=== PATIENT | male | born 1945 | race Caucasian/White ===

== ENCOUNTER → 2019-05-15 | Outpatient (CLI) | payer MEDICARE | LOC: M SMT 14:37 | PROVIDERS: ATTEND Nurse Practitioner Family | DX: R97.20 Elevated prostate specific antigen [PSA] (principal) ==

== ENCOUNTER → 2019-05-15 | Outpatient (REF) | payer MEDICARE ==
[2019-05-15 19:05] LABS: APPEARANCE, URINE CLEAR (CLEAR); BACTERIA, URINE AUTO NEGATIVE (NEGATIVE); BILIRUBIN, URINE AUTO NEGATIVE (NEGATIVE); BLOOD, URINE BLOOD NEGATIVE (NEGATIVE); COLOR, URINE YELLOW (YELLOW); GLUCOSE, URINE (UA) AUTO NEGATIVE (NEGATIVE); KETONE, URINE AUTO NEGATIVE (NEGATIVE); LEUKOCYTE ESTERASE, URINE AUTO NEGATIVE (NEGATIVE); MUCUS, URINE SMALL (NEGATIVE); NITRITE, URINE AUTO NEGATIVE (NEGATIVE); PROTEIN, URINE AUTO NEGATIVE (NEGATIVE); RBC, URINE AUTO 0 /HPF (0-3); SPECIFIC GRAVITY URINE AUTO 1.012 (1.002-1.035); SQUAMOUS EPITHELIAL CELL UR AU 0 /HPF (0-6); UROBILINOGEN, URINE AUTO 0.2 mg/dL (0.0-2.0); WBC, URINE AUTO 0 /HPF (0-3)
== END ==
LOC: M SMT 17:26
PROVIDERS: ATTEND Nurse Practitioner Family
DX: R31.9 Hematuria, unspecified (principal); R97.20 Elevated prostate specific antigen [PSA]

== ENCOUNTER → 2019-05-30 | Outpatient (CLI) | payer MEDICARE ==
[~2019-05-30] MED LIST: ASPI81TA85 PO; ATOR1TAB21 PO; AVAP300T23 PO; BUPR50TA PO; CIPR-249 PO; COLA100C5 PO; IRBE300T12 PO; LIPI20TA PO; OMEP20CA4 PO; OXYC1TAB23 PO; PRIL20TA2 PO; SM 88TAB PO
--- NOTE | 2019-05-30 14:25 | REP ---
TRANSRECTAL ULTRASOUND PROSTATE WITH ULTRASOUND GUIDANCE FOR PROSTATE BIOPSY: Real-time sonographic evaluation of prostate performed utilizing transrectal probe. Size of the gland is 4.2 x 2.6 x 4.3 cm for a total volume of 25 mL. Echotexture is heterogeneous. There are tiny cystic areas and calcifications noted. Several focal hypoechoic areas are seen. There is one in the left mid aspect, 7 x 5 mm, one in the right apex 7 x 6 mm, and one in the left apex 7 x 4 mm. Seminal vesicles appear symmetrical. Ultrasound guidance was provide for Dr. Gunter, who performed ultrasound-guided biopsy of the prostate. Electronically Signed by Boni Wild MD 05/31/2019 09:24 A
== END ==
LOC: M SMT PRO 10:17
PROVIDERS: ATTEND Urology
DX: C61 Malignant neoplasm of prostate (principal)
CPT/HCPCS: 55700; 76872; 76942; G0416

== ENCOUNTER → 2019-06-07 | Outpatient (REF) | payer MEDICARE, OTHER ==
[2019-06-07 17:48] LABS: APPEARANCE, URINE CLOUDY (CLEAR); BACTERIA, URINE AUTO 1+ (NEGATIVE); BILIRUBIN, URINE AUTO NEGATIVE (NEGATIVE); BLOOD, URINE BLOOD 2+ (NEGATIVE); COLOR, URINE YELLOW (YELLOW); GLUCOSE, URINE (UA) AUTO NEGATIVE (NEGATIVE); KETONE, URINE AUTO TRACE mg/dL (NEGATIVE); LEUKOCYTE ESTERASE, URINE AUTO 3+ (NEGATIVE); MUCUS, URINE SMALL (NEGATIVE); NITRITE, URINE AUTO NEGATIVE (NEGATIVE); PROTEIN, URINE AUTO 1+ mg/dL (NEGATIVE); RBC, URINE AUTO 8 /HPF (0-3); SPECIFIC GRAVITY URINE AUTO 1.016 (1.002-1.035); SQUAMOUS EPITHELIAL CELL UR AU 0 /HPF (0-6); UROBILINOGEN, URINE AUTO 0.2 mg/dL (0.0-2.0); WBC, URINE AUTO TNTC /HPF (0-3)
== END ==
LOC: M LABSMT 13:28
PROVIDERS: ATTEND Urology
DX: R30.0 Dysuria (principal)

== ENCOUNTER 2019-06-21 11:40 | Inpatient (IN) | payer MEDICARE, OTHER ==
[~2019-06-21] VITALS: Ht 177.8 cm; Wt 100.7 kg
[~2019-06-21 11:40] MED LIST changes: -AVAP300T23 PO; -CIPR-249 PO; -COLA100C5 PO; +HEPARIN SOD (PORCINE) 5000 UNITS/ML VIAL SQ ONE; +KETOROLAC 60 MG/2 ML VIAL (J1885) As Ordered ONE; +LIDOCAINE 2% INJ 100 MG/5 ML SDV (FOR ANES.) As Ordered ONE; -LIPI20TA PO; +LR 1,000 ML IV ONE; +MIDAZOLAM INJ 2 MG/2 ML VIAL (J2250) As Ordered ONE; +OMEP1CAP73 PO; -OMEP20CA4 PO; +ONDANSETRON 4MG/2ML VIAL (J2405) As Ordered ONE; -OXYC1TAB23 PO; -PRIL20TA2 PO; +ROCURONIUM BROMIDE 50 MG/5 ML VIAL As Ordered ONE; -SM 88TAB PO; +SUGAMMADEX SODIUM 500 MG/5 ML VIAL (BRIDION) As Ordered ONE; +ceFAZolin SOD 2 GM in IV 1 EA IV ONE; +dexameTHASONE 4 MG/ML 1ML VIAL (J1100) As Ordered ONE; +fentaNYL 250 MCG/5 ML INJECTION (J3010) As Ordered ONE; +hydroCHLOROthiazide 12.5 MG CAPSULE PO SCH; +propofoL 200 MG/20 ML VIAL As Ordered ONE
[2019-06-21] MEDS ORDERED: ACETAMINOPHEN TAB 650MG DOSE (2X325MG) PO PRN (12:30)
[2019-06-21] MEDS ORDERED: ONDANSETRON 4MG/2ML VIAL (J2405) IV PRN ×2 (12:30→17:15)
[2019-06-21] MEDS ORDERED: PERCOCET 5MG/325MG TAB PO PRN ×2 (12:30→17:15)
[2019-06-21] MEDS ORDERED: MORPHINE 4 MG/ML 1ML VIAL/SYRINGE (J2270) IV PRN (12:30)
[2019-06-21] MEDS ORDERED: VECURONIUM BROMIDE 10 MG VIAL As Ordered ONE (13:03)
[2019-06-21] MEDS ORDERED: ROCURONIUM BROMIDE 50 MG/5 ML VIAL As Ordered ONE ×2 (13:03→15:21)
[2019-06-21] MEDS ORDERED: ePHEDrine SULFATE 25 MG/5 ML(5MG/ML) SYRINGE As Ordered ONE (13:05)
[2019-06-21] MEDS ORDERED: PHENYLephrine HCL 500 MCG/5 ML (100MCG/ML) SYRINGE (J2370) As Ordered ONE (13:05)
[2019-06-21] MEDS ORDERED: HYDROmorphone HCL 2 MG/ML 1ML VIAL (J1170) As Ordered ONE (13:56)
[2019-06-21] MEDS ORDERED: ACETAMINOPHEN 1000MG 100ML IV BTL (OFIRMEV) (J0131 PER 10MG) As Ordered ONE (14:16)
[2019-06-21] MEDS ORDERED: DESFLURANE 240 ML INHALANT As Ordered ONE (15:02)
[2019-06-21] MEDS ORDERED: BUPIVACAINE HCL 0.25% 10 ML VIAL XX ONE (16:30)
[2019-06-21] MEDS ORDERED: LIDOCAINE 1% SDV INJ 30 ML VIAL XX ONE (16:30)
--- NOTE | 2019-06-21 16:52 | ROOPDOC ---
[facility] Report Of Operation Report of Operation DATE OF PROCEDURE: 06/21/19 PREPROCEDURE DIAGNOSES: Prostate Cancer. POSTPROCEDURE DIAGNOSES: Prostate Cancer. PROCEDURE: Robotic-assisted Laparoscopic Radical Prostatectomy. SURGEON: Matias Viera MD WELL TESTING OPERATOR: Liliam Lopez NP ANESTHESIA: General. OPERATIVE INDICATIONS: This is a 74 year old male with low risk clinical T1c Jim 3+3 prostate cancer. After a discussion of the options for treatment, he elected to undergo the above procedure. DESCRIPTION OF PROCEDURE: The patient was brought to the operating room and general anesthesia was induced. Prophylactic antibiotics were infused. He was then placed in the dorsal lithotomy position and prepped and draped in the usual sterile fashion. At this point, a Bledsoe catheter was inserted into the bladder and the balloon was filled with 10 mL of sterile water. We then made a midline incision just above the umbilicus for a 12 mm port. A Veress needle was utilized to achieve pneumoperitoneum. Next, an 8 mm port was inserted into the incision and subsequently a camera was inserted. There were no injuries from the Veress needle or initial trocar placement. At this point, we placed the remaining ports, including a 12 mm grants assistant port and then three robotic ports in the usual configuration in line with the umbilicus. Once all the ports were placed, the robot was docked. Lysis of adhesions between the sigmoid colon and abdominal wall was then performed. The bladder was then released from the anterior abdominal wall using electrocautery. Once the bladder was dropped, the fat overlying the prostate was cleared using electrocautery. The superficial dorsal vein was controlled with electrocautery. The endopelvic fascia was opened on both sides and the dorsal venous complex was cleared. Next, a #0 Vicryl [id number] stitch was placed around the do rsal venous complex. Once that was done, the bladder was opened and dissected away from the prostate. At this point I dissected posterior and the vasa deferentia were identified. They were ligated and transected. The seminal vesicles were then dissected out. Bilateral pedicles were ligated and transected using a Harmonic scalpel. After taking care of the pedicles and mobilizing the rectum off the prostate below, the dorsal venous complex was transected with electrocautery. The urethra was then opened and the catheter was withdrawn and the posterior urethra was transected, thus freeing the prostate. At this point, we checked for hemostasis and it appeared very good. Once hemostasis was confirmed, I then moved on to perform the vesicourethral anastomosis. The vesicourethral anastomosis was performed in running fashion using a Quill stitch. Once this was done, the final #20-Djiboutian Bledsoe catheter was placed. The balloon was filled with 15 mL of sterile water. Upon completion of the vesicourethral anastomosis, it was tested by filling the bladder with sterile water. There was no leakage, indicating a watertight anastomosis. At th is point, the prostate was placed in an Endo Catch bag for future retrieval. The robot was then undocked. A Roslyn fascial closure device was utilized to place a #0 Vicryl suture between the fascia of the 12 mm grants assistant port. At this point, a Benito- Campuzano drain was brought in through the left robotic port skin site and the drain was positioned anterior to the bladder. The drain was secured to the skin with #2-0 Ethilon suture. Next, all the remaining ports were removed and there did not appear to be any bleeding from any of the port sites. The prostate was then extracted from the camera port site after the skin was extended. The fascia in this incision was then closed with a running #0 Vicryl stitch. The previously placed #0 Vicryl free ties through the grants assistant port were then tied down and all incisions were irrigated. Last, all of the incisions were closed with run faraz subcuticular #4-0 Monocryl sutures. Local anesthesia was applied. Dermabond was then applied to the incisions. This marked the conclusion of the procedure. The patient was then taken out of the dorsal lithotomy position, awakened from anesthesia and transported to the recovery room in stable condition. ESTIMATED BLOOD LOSS: 75 mL. COMPLICATIONS: None. SPECIMENS: Prostate. PLAN: The patient will be admitted to the hospital postoperatively, and he will likely be discharged home within the next 1-2 days. MATIAS VIERA MD Jun 21, 2019 16:52
[2019-06-21 17:07] LABS: HEMATOCRIT 41.1 % (42.0-52.0); HEMOGLOBIN 13.5 g/dl (13.5-17.5); MEAN CORPUSCULAR HGB CONC 32.8 g/dl (32.0-36.5); MEAN CORPUSCULAR VOLUME 91.3 fl (80.0-96.0); PLATELET COUNT, AUTOMATED 376 10^3/uL (150-450); WHITE BLOOD COUNT 16.6 10^3/uL (4.0-10.0)
[2019-06-21] MEDS ORDERED: MEPERIDINE INJ 25 MG/ML VIAL (J2175) IV PRN (17:15)
[2019-06-21] MEDS ORDERED: METOCLOPRAMIDE INJ 10MG/2ML VIAL (J2765) IV PRN (17:15)
[2019-06-21] MEDS ORDERED: fentaNYL 100 MCG/2 ML INJECTION (J3010) IV PRN (17:15)
[2019-06-21] MEDS ORDERED: LR 1,000 ML IV SCH (17:15)
[2019-06-21 17:25] LABS: CALCIUM LEVEL 8.5 MG/DL (8.8-10.2); CREATININE FOR GFR 1.59 MG/DL (0.70-1.30); GLOMERULAR FILTRATION RATE 45.5 (>42); POTASSIUM SERUM 4.1 MEQ/L (3.5-5.1)
[2019-06-21 17:40] VITALS: BP 143/87
[2019-06-21] MEDS: IRBESARTAN 150 MG TAB PO SCH (17:58)
[2019-06-21] MEDS: DOCUSATE SODIUM 100 MG CAP PO SCH ×2 (17:59→20:39)
[2019-06-21] MEDS: NS 1,000 ML IV SCH ×2 (18:39→19:47)
[2019-06-21] MEDS: PERCOCET 5MG/325MG TAB PO PRN ×2 (18:56→23:48)
[2019-06-21] MEDS: ceFAZolin SOD 1 GM in D5W MINI-BAG PLUS 50 ML IV SCH (19:47)
[2019-06-21] MEDS: OMEPRAZOLE 20 MG CAP PO SCH (20:39)
[2019-06-21] MEDS: ATORVASTATIN 20 MG TAB PO SCH (20:39)
[2019-06-21 21:06] VITALS: BP 139/83
[2019-06-21] MEDS: HEPARIN SOD (PORCINE) 5000 UNITS/ML VIAL SC SCH (21:28)
[2019-06-21 22:06] VITALS: BP 138/83
[2019-06-22 02:40] VITALS: BP 112/70
[2019-06-22] MEDS: ceFAZolin SOD 1 GM in D5W MINI-BAG PLUS 50 ML IV SCH (03:36)
[2019-06-22] MEDS: NS 1,000 ML IV SCH (03:36)
[2019-06-22] MEDS: HEPARIN SOD (PORCINE) 5000 UNITS/ML VIAL SC SCH ×3 (05:29→21:28)
[2019-06-22 06:19] VITALS: BP 116/70
--- NOTE | 2019-06-22 07:50 | IPNPDOC ---
Subjective Review oF Systems Chief Complaint The patient is a 74-year-old male admitted with a reason for visit of Prostate Cancer. Events since Last Encounter No acute events o/n. Good pain control. No n/v. Ambulated a little last night w/o difficulty. No f/c/ns. Objective Physical Examination General Exam: Alert, Cooperative, No Acute Distress ABDOMEN EXAM: Soft, Tenderness (minimal), Other (incisions clean/dry/intact; TANVI w/ serosang output) Skin Exam: Nl turgor and temperature Other physical findings catheter draining pink urine Vital Signs/I&O Vital Signs Date Time Temp Pulse Resp B/P (MAP) Pulse Ox O2 Delivery O2 Flow Rate FiO2 06/22/19 06:19 97.8 88 18 116/70 (85) 97 06/21/19 20:30 2.0 I&O- Last 24 Hours up to 6 AM 06/22/19 06:00 Intake Total 4650 ml Output Total 915 ml Balance 3735 ml Laboratory Data Labs 24H Laboratory Tests 2 06/21/19 16:51: Nucleated Red Blood Cells % (auto) 0.0, Anion Gap 7L, Glomerular Filtration Rate 45.5, Blood Urea Nitrogen 22H, Creatinine 1.59H, Sodium Level 138, Potassium Level 4.1, Chloride Level 104, Carbon Dioxide Level 27, Calcium Level 8.5L CBC/BMP Laboratory Tests 06/21/19 16:51 Red Blood Count 4.50, Mean Corpuscular Volume 91.3, Mean Corpuscular Hemoglobin 30.0, Mean Corpuscular Hemoglobin Concent 32.8, Red Cell Distribution Width 13.1, Calcium Level 8.5 L Assessment/Plan Date Seen The patient was seen on 06/22/19. Patient Summary This is a 74 y/o M POD1 s/p RALP. Labs are still pending. UOP has been low as he did not get his diuretic yesterday. Pain is well controlled. Plan/VTE VTE Prophylaxis Ordered?: Yes VTE Exclusion Mechanical Proph: N/A:VTE Prophy Ordered VTE Exclusion Pharmacological: N/A:VTE Prophy Ordered Plan/Urinary Catheter Urinary Catheter: Other Catheter: (catheter will need to stay in for 7-10 days for healing of the vesicourethral anastomosis) Plan - percocet prn pain - d/c IVF - strict I/Os - SCDs when in bed - SQH - incentive spirometry - will hold HCTZ and give IV lasix this morning - continue home meds - ambulate - CLD -> ADAT - likely discharge home later today w/ catheter MATIAS VIERA MD Jun 22, 2019 07:50
[2019-06-22 07:59] LABS: CALCIUM LEVEL 8.6 MG/DL (8.8-10.2); CREATININE FOR GFR 1.79 MG/DL (0.70-1.30); GLOMERULAR FILTRATION RATE 39.7 (>42); POTASSIUM SERUM 4.5 MEQ/L (3.5-5.1)
[2019-06-22] MEDS ORDERED: FUROSEMIDE 20 MG/2 ML VIAL (J1940) IV ONE (08:00)
[2019-06-22 08:11] LABS: HEMATOCRIT 37.8 % (42.0-52.0); HEMOGLOBIN 12.6 g/dl (13.5-17.5); MEAN CORPUSCULAR HEMOGLOBIN 31.3 pg (27.0-33.0); MEAN CORPUSCULAR HGB CONC 33.3 g/dl (32.0-36.5); PLATELET COUNT, AUTOMATED 389 10^3/uL (150-450); RED BLOOD COUNT 4.02 10^6/uL (4.30-6.10); WHITE BLOOD COUNT 15.3 10^3/uL (4.0-10.0)
[2019-06-22] MEDS: DOCUSATE SODIUM 100 MG CAP PO SCH ×2 (08:18→21:28)
[2019-06-22] MEDS: IRBESARTAN 150 MG TAB PO SCH (08:21)
[2019-06-22 14:00] VITALS: BP 126/68
[2019-06-22] MEDS: PERCOCET 5MG/325MG TAB PO PRN ×2 (14:45→21:29)
[2019-06-22] MEDS: hydroCHLOROthiazide 12.5 MG CAPSULE PO SCH (17:36)
[2019-06-22 21:17] VITALS: BP 130/69
[2019-06-22] MEDS: ATORVASTATIN 20 MG TAB PO SCH (21:28)
[2019-06-22] MEDS: OMEPRAZOLE 20 MG CAP PO SCH (21:28)
[2019-06-23] MEDS: HEPARIN SOD (PORCINE) 5000 UNITS/ML VIAL SC SCH (05:37)
[2019-06-23 06:32] VITALS: BP 138/73
[2019-06-23 06:53] LABS: HEMATOCRIT 36.6 % (42.0-52.0); HEMOGLOBIN 11.8 g/dl (13.5-17.5); MEAN CORPUSCULAR HGB CONC 32.2 g/dl (32.0-36.5); MEAN CORPUSCULAR VOLUME 96.1 fl (80.0-96.0); PLATELET COUNT, AUTOMATED 320 10^3/uL (150-450); RED BLOOD COUNT 3.81 10^6/uL (4.30-6.10); WHITE BLOOD COUNT 10.2 10^3/uL (4.0-10.0)
[2019-06-23 07:22] LABS: CALCIUM LEVEL 8.6 MG/DL (8.8-10.2); CREATININE FOR GFR 1.34 MG/DL (0.70-1.30); GLOMERULAR FILTRATION RATE 55.5 (>42); POTASSIUM SERUM 3.9 MEQ/L (3.5-5.1)
[2019-06-23] MEDS: hydroCHLOROthiazide 12.5 MG CAPSULE PO SCH (09:06)
[2019-06-23] MEDS: DOCUSATE SODIUM 100 MG CAP PO SCH (09:06)
[2019-06-23 09:07] VITALS: BP 138/73
[2019-06-23] MEDS: IRBESARTAN 150 MG TAB PO SCH (09:07)
--- NOTE | 2019-06-23 10:09 | IPNPDOC ---
Subjective Review oF Systems Chief Complaint The patient is a 74-year-old male admitted with a reason for visit of Prostate Cancer. Events since Last Encounter No acute events o/n. Patient noted that he had some leakage around the catheter yesterday but the majority of the urine was still going through the tubing. Good pain control. Having small amounts of flatus but no bm. No n/v. No f/c/ns. Objective Physical Examination General Exam: Alert, Cooperative, No Acute Distress ABDOMEN EXAM: Soft, Tenderness (minimal), Other (incisions clean/dry/intact; TANVI w/ serous output) Skin Exam: Nl turgor and temperature Neuro Exam: Normal Speech Psych Exam: Mental status NL, Mood NL Other physical findings catheter in place, draining clear urine Vital Signs/I&O Vital Signs Date Time Temp Pulse Resp B/P (MAP) Pulse Ox O2 Delivery O2 Flow Rate FiO2 06/23/19 09:07 138/73 06/23/19 06:32 97.6 73 97 06/22/19 21:59 16 06/21/19 20:30 2.0 I&O- Last 24 Hours up to 6 AM 06/23/19 06:00 Intake Total 2310 ml Output Total 3775 ml Balance -1465 ml Laboratory Data Labs 24H Laboratory Tests 2 06/23/19 06:38: Nucleated Red Blood Cells % (auto) 0.0, Anion Gap 5L, Glomerular Filtration Rate 55.5, Blood Urea Nitrogen 20H, Creatinine 1.34H, Sodium Level 137, Potassium Level 3.9, Chloride Level 105, Carbon Dioxide Level 27, Calcium Level 8.6L CBC/BMP Laboratory Tests 06/23/19 06:38 Red Blood Count 3.81 L, Mean Corpuscular Volume 96.1 H, Mean Corpuscular Hemoglobin 31.0, Mean Corpuscular Hemoglobin Concent 32.2, Red Cell Distribution Width 13.5, Calcium Level 8.6 L Assessment/Plan Date Seen The patient was seen on 06/23/19. Patient Summary This is a 74 y/o M POD2 s/p RALP. He is doing well. UOP has been excellent w/ almost no drain output for 24 hrs. Serum Cr is now back at his baseline of 1.3. Plan/VTE VTE Prophylaxis Ordered?: Yes VTE Exclusion Mechanical Proph: N/A:VTE Prophy Ordered VTE Exclusion Pharmacological: N/A:VTE Prophy Ordered Plan/Urinary Catheter Urinary Catheter: Other Catheter: (catheter will need to stay in for 7-10 days for healing of the vesicourethral anastomosis) Plan - d/c TANVI drain - percocet prn pain - ambulate - SCDs when in bed - SQH - incentive spirometry - regular diet - discharge home today w/ catheter MATIAS VIERA MD Jun 23, 2019 10:09
[2019-06-23] MEDS: PERCOCET 5MG/325MG TAB PO PRN (10:22)
[2019-06-23] MEDS ORDERED: AVAP300T23 PO (13:57)
[2019-06-23] MEDS ORDERED: SM 88TAB PO (13:57)
[2019-06-23] MEDS ORDERED: OXYC1TAB23 PO (13:57)
[2019-06-23] MEDS ORDERED: COLA100C5 PO (13:57)
[2019-06-23] MEDS ORDERED: LIPI20TA PO (13:57)
[2019-06-23] MEDS ORDERED: CIPR-249 PO (13:57)
[2019-06-23] MEDS ORDERED: PRIL20TA2 PO (13:57)
[2019-06-23 14:00] VITALS: BP 134/67
--- NOTE | 2019-06-26 17:35 | DSES ---
DATE OF ADMISSION: 06/21/2019 DATE OF DISCHARGE: 06/23/2019 ADMISSION DIAGNOSIS: Prostate cancer. DISCHARGE DIAGNOSIS: Prostate cancer. ADMITTING PHYSICIAN: Macario Gunter MD DISCHARGING PHYSICIAN: Macario Gunter MD PROCEDURE PERFORMED: Robotic-assisted laparoscopic radical prostatectomy. HISTORY OF PRESENT ILLNESS: This is a 74-year-old male who was admitted to the hospital after undergoing the above-listed procedure. HOSPITAL COURSE: The patient's postoperative course was mostly unremarkable. On postoperative day one, he did have a bump in his serum creatinine to 1.7. Also over the night of surgery, he had minimal output from his catheter and a large amount out from his Benito-Campuzano drain. This raised concern for a possible urine leak. We therefore did not discharge him home on postoperative day one. 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 By postoperative day two, he had had large amounts of urine out of his catheter and a very small amount of output from the Benito-Campuzano drain indicating that he actually did not have a urine leak. His serum creatinine also came down to his baseline of 1.3. The rest of his laboratories were within normal limits. By postoperative day two, he was ambulating well and was tolerating a regular diet. He had very good pain control with oral pain medications. Since his Benito- Campuzano drain was putting out very small amounts at this point, it was removed. He was deemed ready for discharge home on postoperative day two and was discharged home with his catheter in place. He will followup in the clinic in approximately one week for catheter removal and to discuss the pathology results. RODRIGUEZ
== END 2019-06-23 14:55 | disposition home or self-care (01) | DRG 708 ==
LOC: M OR 11:40 → M MS5PR 17:35
PROVIDERS: ADMIT Urology; ATTEND Urology
PROC: 8E0W4CZ Robotic Assisted Procedure of Trunk Region, Percutaneous Endoscopic Approach (ICD-10-PCS; 2019-06-21)
PROC: 0VT04ZZ Resection of Prostate, Percutaneous Endoscopic Approach (ICD-10-PCS; principal; 2019-06-21 13:30)
DX: C61 Malignant neoplasm of prostate (principal)

== ENCOUNTER → 2019-07-31 | Outpatient (CLI) | payer MEDICARE ==
[~2019-07-31] MED LIST changes: +AVAP300T23 PO; +CIPR-249 PO; +COLA100C5 PO; -HEPARIN SOD (PORCINE) 5000 UNITS/ML VIAL SQ ONE; -KETOROLAC 60 MG/2 ML VIAL (J1885) As Ordered ONE; -LIDOCAINE 2% INJ 100 MG/5 ML SDV (FOR ANES.) As Ordered ONE; +LIPI20TA PO; -LR 1,000 ML IV ONE; -MIDAZOLAM INJ 2 MG/2 ML VIAL (J2250) As Ordered ONE; -OMEP1CAP73 PO; +OMEP20CA4 PO; -ONDANSETRON 4MG/2ML VIAL (J2405) As Ordered ONE; +OXYC1TAB23 PO; +PRIL20TA2 PO; -ROCURONIUM BROMIDE 50 MG/5 ML VIAL As Ordered ONE; +SM 88TAB PO; -SUGAMMADEX SODIUM 500 MG/5 ML VIAL (BRIDION) As Ordered ONE; -ceFAZolin SOD 2 GM in IV 1 EA IV ONE; -dexameTHASONE 4 MG/ML 1ML VIAL (J1100) As Ordered ONE; -fentaNYL 250 MCG/5 ML INJECTION (J3010) As Ordered ONE; -hydroCHLOROthiazide 12.5 MG CAPSULE PO SCH; -propofoL 200 MG/20 ML VIAL As Ordered ONE
== END ==
LOC: M SMT 11:08
PROVIDERS: ATTEND Urology
DX: C61 Malignant neoplasm of prostate (principal)

== ENCOUNTER → 2020-05-19 | Outpatient (CLI) | payer MEDICARE, OTHER ==
[~2020-05-19] MED LIST changes: -ASPI81TA85 PO; +ASPI81TA86 PO; +BUPR-69 PO; -BUPR50TA PO; +OMEP1CAP73 PO; -OMEP20CA4 PO
== END ==
LOC: M LABSMTC 09:20
PROVIDERS: ATTEND Surgery
DX: Z01.818 Encounter for other preprocedural examination (principal); Z11.59 Encounter for screening for other viral diseases; Z20.828 Contact with and (suspected) exposure to other viral communicable diseases
CPT/HCPCS: C9803; U0003

== ENCOUNTER 2020-05-23 09:49 | Day surgery (SDC) | payer MEDICARE, OTHER ==
[~2020-05-23] VITALS: Ht 175.3 cm; Wt 93.0 kg
[~2020-05-23 09:49] MED LIST changes: +LIDOCAINE 2% 100MG/5ML SDV (FOR ANES.) As Ordered ONE; +NS 1,000 ML IV ONE; +propofoL 200 MG/20 ML VIAL As Ordered ONE
--- NOTE | 2020-05-23 11:17 | ROOR ---
Patient Name: Ray Sandoval Procedure Date: 05/23/2020 10:55 AM Date of : 1945 Age: 75 Room: [facility] Gender: Male Note Status: Finalized Procedure: Colonoscopy Indications: Screening for colorectal malignant neoplasm Providers: Ayo Minaya Jr, MD Referring MD: NISHANT DUARTE Requesting Provider: Medicines: Propofol per Anesthesia Complications: No immediate complications. Procedure: Pre-Anesthesia Assessment: - Prior to the procedure, a History and Physical was performed, and patient medications and allergies were reviewed. The patient is competent. The risks and benefits of the procedure and the sedation options and risks were discussed with the patient. All questions were answered and informed consent was obtained. Patient identification and proposed procedure were verified by the physician and the nurse in the pre-procedure area and in the procedure room. Mental Status Examination: alert and oriented. Airway Examination: normal oropharyngeal airway and neck mobility. Respiratory Examination: clear to auscultation. CV Examination: normal. ASA Grade Assessment: II - A patient with mild systemic disease. After reviewing the risks and benefits, the patient was deemed in satisfactory condition to undergo the procedure. The anesthesia plan was to use moderate sedation / analgesia (conscious sedation). Immediately prior to administration of medications, the patient was re-assessed for adequacy to receive sedatives. The heart rate, respiratory rate, oxygen saturations, blood pressure, adequacy of pulmonary ventilation, and response to care were monitored throughout the procedure. The physical status of the patient was re-assessed after the procedure. The Colonoscope was introduced through the anus and advanced to the cecum, identified by appendiceal orifice and ileocecal valve. The colonoscopy was performed without difficulty. The patient tolerated the procedure well. The quality of the bowel preparation was adequate. Findings: The rectum, recto-sigmoid colon, descending colon, transverse colon, ascending colon, cecum, appendiceal orifice, ileocecal valve and ileum appeared normal. A few small-mouthed diverticula were found in the sigmoid colon. Impression: - The rectum, recto-sigmoid colon, descending colon, transverse colon, ascending colon, cecum, appendiceal orifice, ileocecal valve and terminal ileum are normal. - Diverticulosis in the sigmoid colon. - No specimens collected. Recommendation: - Discharge patient to home (ambulatory). - Repeat colonoscopy in 10 years for screening purposes. Ayo Minaya MD Ayo Minaya Jr, MD 05/23/2020 11:17:16 AM Electronically signed by Ayo Minaya Jr, MD Number of Addenda: 0 Note Initiated On: 05/23/2020 10:55 AM Estimated Blood Loss: Estimated blood loss: none.
[2020-05-23 11:40] VITALS: BP 146/71
== END 2020-05-23 11:58 | disposition home or self-care (01) ==
LOC: M OPP 09:49
PROVIDERS: ATTEND Surgery
DX: Z12.11 Encounter for screening for malignant neoplasm of colon (principal); K57.30 Diverticulosis of large intestine without perforation or abscess without bleeding; Z79.82 Long term (current) use of aspirin; Z79.891 Long term (current) use of opiate analgesic; Z79.899 Other long term (current) drug therapy

== ENCOUNTER 2024-09-08 06:50 | Day surgery (SDC) | payer MEDICARE ==
[~2024-09-08] VITALS: Ht 175.3 cm; Wt 102.1 kg
[~2024-09-08 06:50] MED LIST changes: +CITA10TA7 PO; +ECOT81TA5 PO; -LIDOCAINE 2% 100MG/5ML SDV (FOR ANES.) As Ordered ONE; -NS 1,000 ML IV ONE; +OMEP40CA5 PO; -propofoL 200 MG/20 ML VIAL As Ordered ONE
[2024-09-08] MEDS ORDERED: KETOROLAC 60MG 2ML VIAL As Ordered ONE (07:09)
[2024-09-08] MEDS ORDERED: LIDOCAINE 2% INJ 100 MG/5 ML SYRINGE As Ordered ONE (07:09)
[2024-09-08] MEDS ORDERED: fentaNYL 100 MCG/2 ML INJECTION As Ordered ONE (07:09)
[2024-09-08] MEDS ORDERED: propofoL 200 MG/20 ML VIAL As Ordered ONE (07:09)
[2024-09-08] MEDS ORDERED: LIDOCAINE 2% 100MG/5ML SDV (FOR ANES.) As Ordered ONE (07:12)
[2024-09-08] MEDS ORDERED: NS 1,000 ML IV SCH (07:25)
[2024-09-08] MEDS ORDERED: LIDOCAINE 1% SDV 5ML VIAL SC PRN (07:25)
[2024-09-08] MEDS: ceFAZolin SOD 2 GM in IV 1 EA IV ONE (08:36)
[2024-09-08] MEDS: LIDOCAINE 2% 5ML JELLY UROJET As Ordered ONE (09:00)
[2024-09-08 09:16] VITALS: BP 120/80; TEMP 97.5; O2SAT 100
== END 2024-09-08 09:52 | disposition home or self-care (01) ==
LOC: M SDC 06:50
PROVIDERS: ATTEND Urology
DX: R32 Unspecified urinary incontinence (principal); I10 Essential (primary) hypertension; E78.5 Hyperlipidemia, unspecified; K21.9 Gastro-esophageal reflux disease without esophagitis; F41.9 Anxiety disorder, unspecified; F32.A Depression, unspecified; G47.33 Obstructive sleep apnea (adult) (pediatric); Z79.899 Other long term (current) drug therapy
CPT/HCPCS: 51715; A4215; J0690; J1885; J3010; L8606

== ENCOUNTER → 2025-09-21 | Outpatient (CLI) | payer MEDICARE ==
[~2025-09-21] MED LIST changes: +AMLO2.5C6 PO; +LOTR52CA PO
[2025-09-21 13:02] LABS: APPEARANCE, URINE CLEAR (CLEAR); BACTERIA, URINE AUTO NEGATIVE (NEGATIVE); BILIRUBIN, URINE AUTO NEGATIVE (NEGATIVE); BLOOD, URINE BLOOD NEGATIVE (NEGATIVE); GLUCOSE, URINE (UA) AUTO NEGATIVE (NEGATIVE); KETONE, URINE AUTO NEGATIVE (NEGATIVE); LEUKOCYTE ESTERASE, URINE AUTO NEGATIVE (NEGATIVE); MUCUS, URINE SMALL (NEGATIVE); NITRITE, URINE AUTO NEGATIVE (NEGATIVE); PLATELET COUNT, AUTOMATED 304 10^3/uL (150-450); PROTEIN, URINE AUTO NEGATIVE (NEGATIVE); RBC, URINE AUTO 0 /HPF (0-3); SPECIFIC GRAVITY URINE AUTO 1.026 (1.002-1.035); SQUAMOUS EPITHELIAL CELL UR AU 0 /HPF (0-6); UROBILINOGEN, URINE AUTO 0.2 mg/dL (0.0-2.0); WBC, URINE AUTO 0 /HPF (0-3)
[2025-09-21 13:38] LABS: ALT/SGPT 15.0 U/L (7.0-40); AST/SGOT 16.0 U/L (<34); CALCIUM LEVEL 9.0 MG/DL (8.3-10.6); CARBON DIOXIDE LEVEL 28.0 MMOL/L (20-31); CHLORIDE LEVEL 103.0 MMOL/L (98-107); CREATININE FOR GFR 1.38 MG/DL (0.70-1.30); GLOMERULAR FILTRATION RATE 51.7 (>35); POTASSIUM SERUM 4.3 MMOL/L (3.5-5.1); SODIUM LEVEL 141.0 MMOL/L (136-145)
== END ==
LOC: M WUC 10:49
PROVIDERS: ATTEND Physician Assistant
DX: Z01.818 Encounter for other preprocedural examination (principal); Z79.899 Other long term (current) drug therapy

== ENCOUNTER 2025-09-28 07:15 | Day surgery (SDC) | payer MEDICARE ==
[~2025-09-28] VITALS: Ht 177.8 cm; Wt 94.0 kg
[2025-09-28] MEDS ORDERED: LR 1,000 ML IV SCH (07:30)
[2025-09-28] MEDS ORDERED: ACETAMINOPHEN 1000MG/100ML IV BAG As Ordered ONE (07:46)
[2025-09-28] MEDS ORDERED: dexmedeTOMIDine (4 MCG/ML) 200 MCG/50 ML BTL As Ordered ONE (07:46)
[2025-09-28] MEDS ORDERED: ONDANSETRON 4MG/2ML VIAL As Ordered ONE (07:47)
[2025-09-28] MEDS ORDERED: dexAMETHasone 4 MG/ML 1 ML VIAL As Ordered ONE (07:47)
[2025-09-28] MEDS ORDERED: LIDOCAINE 2% 100 MG/5 ML SDV (FOR ANES.) As Ordered ONE (08:05)
[2025-09-28] MEDS: ceFAZolin SOD 2 GM IV ONCE IV ONE (09:26)
[2025-09-28] MEDS: LIDOCAINE 2% 5 ML JELLY UROJET As Ordered ONE (09:35)
[2025-09-28 10:45] VITALS: BP 124/70; TEMP 98.6; O2SAT 98
== END 2025-09-28 11:01 | disposition home or self-care (01) ==
LOC: M SDC 07:15
PROVIDERS: ATTEND Urology
DX: N39.3 Stress incontinence (female) (male) (principal); I10 Essential (primary) hypertension; E78.00 Pure hypercholesterolemia, unspecified; K21.9 Gastro-esophageal reflux disease without esophagitis; G47.30 Sleep apnea, unspecified; Z85.46 Personal history of malignant neoplasm of prostate; R32 Unspecified urinary incontinence; Z79.899 Other long term (current) drug therapy; Z79.82 Long term (current) use of aspirin; Z87.442 Personal history of urinary calculi; N52.31 Erectile dysfunction following radical prostatectomy
CPT/HCPCS: 51715; A4649; J0131; J0688; J1100; J2405; J3010; L8606

== ENCOUNTER → 2025-10-09 | Outpatient (CLI) | payer MEDICARE | LOC: M WUC 15:16 | PROVIDERS: ATTEND Physician Assistant | DX: M54.50 Low back pain, unspecified (principal); M47.812 Spondylosis without myelopathy or radiculopathy, cervical region; Z98.890 Other specified postprocedural states ==

== ENCOUNTER → 2025-10-23 | Outpatient (CLI) | payer MEDICARE | LOC: M PLAIMG 14:16 | PROVIDERS: ATTEND Physician Assistant | DX: M51.360 Other intervertebral disc degeneration, lumbar region with discogenic back pain only (principal) ==

== ENCOUNTER 2025-10-29 18:20 | Emergency (ER) | payer MEDICARE ==
[~2025-10-29] VITALS: Ht 177.8 cm; Wt 96.2 kg
[2025-10-29 19:08] LABS: BASO # 0.0 10^3/uL (0.0-0.2); BASO % 0.3 % (0.0-1.0); EOS # 0.2 10^3/uL (0.0-0.5); EOS % 1.9 % (0.0-3.0); LYMPH # 1.2 10^3/uL (1.5-5.0); LYMPH % 13.9 % (24.0-44.0); MONO # 0.7 10^3/uL (0.0-0.8); MONO % 7.6 % (2.0-8.0); NEUTROPHILS # 6.7 10^3/uL (1.5-8.5); NEUTROPHILS % 76.1 % (36.0-66.0); PLATELET COUNT, AUTOMATED 275 10^3/uL (150-450)
[2025-10-29 19:25] LABS: CALCIUM LEVEL 8.8 MG/DL (8.3-10.6); CARBON DIOXIDE LEVEL 26.0 MMOL/L (20-31); CHLORIDE LEVEL 103.0 MMOL/L (98-107); CREATININE FOR GFR 1.17 MG/DL (0.70-1.30); GLOMERULAR FILTRATION RATE 63.0 (>35); POTASSIUM SERUM 4.2 MMOL/L (3.5-5.1); SODIUM LEVEL 139.0 MMOL/L (136-145)
[2025-10-29] MEDS: MECLIZINE 25 MG TABLET PO ONE (20:17)
[2025-10-29] MEDS: NS (Normal Saline) 0.9% 1,000 ML IV ONE (20:17)
[2025-10-29] MEDS ORDERED: MECL-209 PO (21:20)
[2025-10-29] MEDS ORDERED: DEBR6.5S4 OTIC (21:20)
[2025-10-29] MEDS: CARBAMIDE PEROXIDE 6.5% OTIC SOLN 15 ML AU SCH (21:52)
[2025-10-29 22:21] VITALS: BP 169/78; TEMP 97; O2SAT 100
== END 2025-10-29 22:28 | disposition home or self-care (01) ==
LOC: M ED 18:20
DX: H81.4 Vertigo of central origin (principal); H61.23 Impacted cerumen, bilateral; I10 Essential (primary) hypertension; Z79.82 Long term (current) use of aspirin; Z79.02 Long term (current) use of antithrombotics/antiplatelets; Z79.899 Other long term (current) drug therapy